=== PATIENT | female | born 1950 | race Caucasian/White ===

== ENCOUNTER 2018-01-08 10:37 | Outpatient (CLI) | payer OTHER ==
[~2018-01-08 10:37] MED LIST: CATAFLAM50 MG PO; COZAAR50 MG; FLECTOR30 EA TP; FORTEO2.4 ML; ORPH100T PO; ULTRACET PO
== END 2018-01-08 18:03 | disposition home or self-care (01) ==
LOC: MRI 10:37
DX: M25.562 Pain in left knee (principal)
CPT/HCPCS: 73721

== ENCOUNTER 2018-01-08 10:38 | Outpatient (CLI) | payer OTHER | END 2018-01-08 18:03 | disposition home or self-care (01) | LOC: RAD 10:38 | DX: M25.561 Pain in right knee (principal); M25.562 Pain in left knee ==

== ENCOUNTER 2018-09-19 11:08 | Outpatient (CLI) | payer OTHER ==
[~2018-09-19 11:08] MED LIST changes: +DICLOFENAC SOD100 G1 TOP
== END 2018-09-19 11:52 | disposition home or self-care (01) ==
LOC: NUCLEAR 11:08
DX: M81.0 Age-related osteoporosis without current pathological fracture (principal)

== ENCOUNTER 2019-04-16 08:40 | Outpatient (CLI) | payer OTHER | END 2019-04-16 08:54 | disposition home or self-care (01) | LOC: RAD 501 08:40 | DX: J45.991 Cough variant asthma (principal); E66.01 Morbid (severe) obesity due to excess calories; R05 Cough ==

== ENCOUNTER 2019-06-10 08:00 | Outpatient (CLI) | payer OTHER | END 2019-06-10 08:07 | disposition home or self-care (01) | LOC: LAB 08:00 | DX: E03.8 Other specified hypothyroidism (principal); E11.9 Type 2 diabetes mellitus without complications; I10 Essential (primary) hypertension; E78.2 Mixed hyperlipidemia ==

== ENCOUNTER 2019-06-10 08:58 | Outpatient (CLI) | payer OTHER | END 2019-06-10 09:03 | disposition home or self-care (01) | LOC: MAMO-SONO 08:58 | DX: N60.11 Diffuse cystic mastopathy of right breast (principal); N60.12 Diffuse cystic mastopathy of left breast; Z12.31 Encounter for screening mammogram for malignant neoplasm of breast; Z87.898 Personal history of other specified conditions ==

== ENCOUNTER 2020-10-06 10:23 | Outpatient (CLI) | payer OTHER | END 2020-10-06 11:19 | disposition home or self-care (01) | LOC: NUCLEAR 10:23 | PROVIDERS: ATTEND Internal Medicine Rheumatology | DX: M81.0 Age-related osteoporosis without current pathological fracture (principal) ==

== ENCOUNTER 2021-01-24 07:35 | Outpatient (CLI) | payer OTHER | END 2021-01-24 07:53 | disposition home or self-care (01) | LOC: SONOGRAMA 07:35 → MAMO-SONO 07:45 → SONOGRAMA 07:53 | PROVIDERS: ATTEND Internal Medicine Gastroenterology | DX: R10.84 Generalized abdominal pain (principal) ==

== ENCOUNTER 2021-03-23 08:49 | Outpatient (CLI) | payer OTHER | END 2021-03-23 09:05 | disposition home or self-care (01) | LOC: TOM 08:49 | PROVIDERS: ATTEND Internal Medicine Cardiovascular Disease | DX: R51.9 Headache, unspecified (principal); N63.11 Unspecified lump in the right breast, upper outer quadrant ==

== ENCOUNTER → 2021-03-23 11:08 | Outpatient (CLI) | payer OTHER | END | disposition home or self-care (01) | LOC: LAB 11:08 | PROVIDERS: ATTEND Internal Medicine Cardiovascular Disease | DX: I10 Essential (primary) hypertension (principal); E11.9 Type 2 diabetes mellitus without complications; E03.8 Other specified hypothyroidism; E78.2 Mixed hyperlipidemia; Z12.11 Encounter for screening for malignant neoplasm of colon; E55.9 Vitamin D deficiency, unspecified ==

== ENCOUNTER 2021-03-25 08:45 | Outpatient (CLI) | payer OTHER | END 2021-03-25 08:53 | disposition home or self-care (01) | LOC: LAB 08:45 | PROVIDERS: ATTEND Internal Medicine Cardiovascular Disease | DX: I10 Essential (primary) hypertension (principal); E11.9 Type 2 diabetes mellitus without complications; E03.8 Other specified hypothyroidism; E78.2 Mixed hyperlipidemia; E55.9 Vitamin D deficiency, unspecified; Z12.11 Encounter for screening for malignant neoplasm of colon ==